=== PATIENT | female | born 1980 | race Caucasian/White ===

== ENCOUNTER 2017-11-05 09:30 | Emergency (ER) | payer OTHER ==
[2017-11-05] MEDS ORDERED: ACETAMINOPHEN 500 MG TAB PO ONE (09:56)
[2017-11-05] MEDS ORDERED: IBUPROFEN 600 MG TAB PO ONE (09:56)
--- NOTE | 2017-11-05 10:31 | EDPHY ---
H & P Time Seen by Provider: 11/05/17 09:42 HPI/ROS: This patient complains of a sore throat that is described as moderate baseline 8 /10 with coughing achy and sharp in nature. She also has can't ingestion of her nose, a dry hacking cough in a [id number] bifrontal headache similar to prior headaches currently 5/10 intensity. She had a peak temperature of a 100.7degrees 2 days ago. No high fevers or chills since. Finally, she complains of myalgias mostly in her back. ROS: No high fevers or chills. HEENT: No ear pain. Pulmonary: No respiratory distress or pleuritic pain or hemoptysis. Cardiovascular: No complaints GI: No nausea vomiting or diarrhea. No abdominal pain. : No complaints Integumentary: No skin rash Musculoskeletal: No arthralgias. 10 point ROS is otherwise negative. Past Medical/Surgical History: Immunizations up-to-date including influenza vaccine Social History: Works as a [employer]PRES[employer] Smoking Status: Current every day smoker Physical Exam: Physical Exam Vital signs are normal. General: No acute distress HEENT: Nose: Clear discharge bilaterally. No sinus tenderness to percussion. Ears: External canals and tympanic membranes are clear with no erythema or abnormal findings bilaterally. Oropharynx: Mild erythema. No exudates. No dysphonia. No drooling or stridor. Eyes: Pupils equal and react to light. Extraocular motions are intact. Neck: Supple with no meningismus. No lymphadenopathy Lungs: Clear to auscultation bilaterally with no rales, rhonchi or wheeze. No respiratory distress. Cardiac: Regular rate and rhythm with no murmur gallop or rub Skin: No rash or pallor. Neuro: Alert with no focal deficits noted. Initial differential diagnosis: Viral pharyngitis versus strep pharyngitis, URI with cough versus influenza versus mild viral bronchitis. Constitutional: Initial Vital Signs Temperature (C) 37.1 C 11/05/17 09:46 Heart Rate 90 11/05/17 09:46 Respiratory Rate 16 11/05/17 09:46 Blood Pressure 139/101 H 11/05/17 09:46 O2 Sat (%) 95 11/05/17 09:46 O2 Delivery Mode Room Air Allergies/Adverse Reactions: No Known Allergies Allergy (Unverified 11/05/17 10:33) Home Medications: Medication Instructions Recorded Albuterol Hfa Anes Only [Proair 2 puffs IH Q4 PRN #1 mdi 11/05/17 Hfa Icu (*)] Benzonatate [Tessalon Pearles (RX)] 100 mg PO QID PRN #20 cap 11/05/17 MDM/Departure - MDM Medications Given: Discontinued Medications Acetaminophen (Tylenol) 1,000 mg PO EDNOW ONE Stop: 11/05/17 09:57 Last Admin: 11/05/17 10:22 Dose: 1,000 mg Ibuprofen (Motrin) 600 mg PO EDNOW ONE Stop: 11/05/17 09:57 Last Admin: 11/05/17 10:21 Dose: 600 mg ED Course/Re-evaluation: Ibuprofen and Tylenol p.o.. Patient's rapid strep and rapid flu are both negative. Findings are consistent with viral URI and viral pharyngitis. I counseled patient regarding this. Clinically, I find no evidence of suggest lower respiratory infection, sepsis or other concerning findings. - Depart Disposition: Home, Routine, Self-Care Clinical Impression: Viral pharyngitis, Viral URI with cough, Myalgia Condition: Good Instructions: Pharyngitis (ED), Upper Respiratory Infection (ED) Additional Instructions: Diagnoses: 1. Viral URI with cough 2. Viral pharyngitis 3. Myalgias Your rapid strep and rapid flu test are negative. Plan: Humidifier Ibuprofen Tylenol for fevers or discomfort as needed. Drink plenty fluids Albuterol inhaler for cough, wheeze or shortness of breath. Tessalon Perles in addition if needed as a cough suppressant. MDX solution in addition if needed for throat pain Symptoms should improve over the next 2-5 days. No work for the next 2 days Return for any significant worsening despite the treatment plan. Stand Alone Forms: Work Excuse
[2017-11-05 10:47] VITALS: BP 137/85; PULSE 85; RESP 18; TEMP 99; O2SAT 94
== END 2017-11-05 10:45 | disposition home or self-care (01) ==
LOC: CED 09:30
DX: J02.8 Acute pharyngitis due to other specified organisms (principal); J06.9 Acute upper respiratory infection, unspecified; B97.89 Other viral agents as the cause of diseases classified elsewhere; M79.1 Myalgia; F17.200 Nicotine dependence, unspecified, uncomplicated
CPT/HCPCS: 87400-PO; 87880-PO